=== PATIENT | female | born 1940 | race Caucasian/White ===

== ENCOUNTER 2016-07-02 16:08 | Outpatient (CLI) | payer MEDICARE, OTHER ==
[2014-10-21 12:24] VITALS: BP 136/74
[2016-07-02 16:31] LABS: BASOPHILS % 0.8 (0.0-1.5); EOSINOPHILS % 3.6 % (0.0-6.8); MEAN CORPUSCULAR HEMOGLOBIN 32.9 pg (28.0-34.0); NEUTROPHILS # 2.8 # k/uL (1.4-7.7)
[2016-07-02 16:58] LABS: eGFR (African) > 60; eGFR (Non-African) > 60
--- NOTE | 2016-07-02 22:01 | Diagnostic Imaging Report ---
Name: DARNELL SCHMITZ ~~ ~~ : 42 ~~ Acc #: [id number]~~ DOS: Jul 02, 2016 4:23:35 PM CDT ~~ Mod: CR ~~ Desc: LOWER EXTREMITY 1 of 1 MAXIM LEE~ [address] [id number] ~ ~ ~ ~ Report Submission Date: Jul 02, 2016 6:09:31 PM CDT Patient ~ Study Name: DARNELL SCHMITZ ~ Date: Jul 02, 2016 4:23:35 PM CDT ~ Modality Type: CR Gender: F ~ Description: LOWER EXTREMITY : 42 ~ Institution: [facility] Physician: MAXIM LEE ~ ~ ~ ~ Right knee -two views CLINICAL HISTORY: ~ Chronic pain medially. FINDINGS: ~ Examination right knee in AP and lateral views demonstrates degenerative changes with narrowing of the joint space worse medially. ~There is mild prominence of tibial spines. ~Patellofemoral space is narrowed with osteophyte formation. ~There is no evident fracture or joint effusion. IMPRESSION: ~ Degenerative changes. ~ No fracture. ~ Electronically signed on Jul 02, 2016 6:09:31 PM CDT by: Genaro SHANKAR
== END 2016-07-02 16:10 ==
LOC: RAD 16:08
PROVIDERS: ATTEND Family Medicine
DX: M17.11 Unilateral primary osteoarthritis, right knee (principal); D50.9 Iron deficiency anemia, unspecified; I10 Essential (primary) hypertension
CPT/HCPCS: 36415; 73560; 80053; 85025

== ENCOUNTER 2017-04-23 08:58 | Emergency (ER) | payer MEDICARE, OTHER ==
[2017-04-23 09:15] VITALS: BP 163/84
--- NOTE | 2017-04-23 09:22 | ED Physician Documentation ---
Upper Respiratory Symptoms - HISTORIAN Historian: patient - HPI Stated Complaint: cough Chief Complaint: Cough/ Upper Respiratory Additional Information: non prod cough lo gr fever chest ache from cough Onset: days ago (4) Duration: intermittent episodes Context: recent foreign travel. denies: insect bite(s), tick(s) Severity: mild, moderate Associated Symptoms: fever, chills - ROS CONST/EYES: denies: weakness, eye redness CVS/RESP: none. denies: shortness of breath LYMPH: denies: leg swelling GI/: denies: none MS/SKIN: denies: joint pain, muscle aches - PAST HX Lung Disease: none PE Risk Factors: none Surgeries/Procedures: Immunizations: influenza Allergies/Adverse Reactions: Allergies Allergy/AdvReac Type Severity Reaction Status Date / Time No Known Allergies Allergy Verified 04/23/17 09:10 Home Medications: Ambulatory Orders Medication Instructions Recorded Benzonatate [Tessalon Perles] 200 mg PO Q6 #20 capsule 04/23/17 - SOCIAL HX Smoking History: non-smoker Alcohol Use: none Drug Use: none - FAMILY HX Family History: no significant history - VITAL SIGNS Vital Signs: Vital Signs Temp Pulse Resp BP Pulse Ox 98.3 F 83 20 163/84 99 04/23/17 09:10 04/23/17 09:10 04/23/17 09:10 04/23/17 09:10 04/23/17 09:10 - REVIEWED ASSESSMENTS Nursing Assessment Reviewed: Yes Vitals Reviewed: Yes Upper Respiratory Symptoms - EXAM General Appearance: mild distress EENT: eyes nml inspection, TM erythema Neck: normal inspection. No: carotid bruit Respiratory: no resp. distress, breath sounds nml, speaks full sentences. No: prolonged expirations Abdomen: non-tender CVS: reg rate & rhythm, heart sounds normal Skin: color nml, no rash, warm,dry. No: cyanosis, diaphoresis, pallor Extremities: non-tender, normal range of motion, no edema Neuro/Psych: oriented x3 Discharge Clincal Impression: influenza, htn Prescriptions: Benzonatate [Tessalon Perles] 200 mg PO Q6 #20 capsule Referrals: Sameer Wong MD [Primary Care Provider] - 2 Days Comments: tessalon hi water bal nut--wear mask Condition: Good Disposition: 01 HOME, SELF-CARE Decision to Admit: NO Decision Time: 09:24
== END 2017-04-23 09:23 | disposition home or self-care (01) ==
LOC: ED 08:58
DX: J11.89 Influenza due to unidentified influenza virus with other manifestations (principal); I10 Essential (primary) hypertension
CPT/HCPCS: 99282